=== PATIENT | male | born 1965 | race Caucasian/White ===

== ENCOUNTER → 2022-05-12 | Outpatient (REF) | payer OTHER ==
[~2022-05-12] MED LIST: ACET500C; ASPI81CH33 PO; CELE100C; COLA100C2; FERR325T; LASI40TA; NEXI1CAP3; PERC5TAB8; SUCR1TAB56
[2022-05-12 17:42] LABS: BASO % 0.4 % (0.0-1.0); EOS # 0.1 10^3/uL (0.0-0.5); EOS % 0.7 % (0.0-3.0); HEMATOCRIT 46.5 % (42.0-52.0); HEMOGLOBIN 15.1 g/dl (13.5-17.5); LYMPH # 2.4 10^3/uL (1.5-5.0); LYMPH % 26.3 % (24.0-44.0); MEAN CORPUSCULAR HEMOGLOBIN 29.5 pg (27.0-33.0); MEAN CORPUSCULAR HGB CONC 32.5 g/dl (32.0-36.5); MONO # 0.6 10^3/uL (0.0-0.8); MONO % 6.3 % (2.0-8.0); NEUTROPHILS # 5.9 10^3/uL (1.5-8.5); NEUTROPHILS % 66.1 % (36.0-66.0); PLATELET COUNT, AUTOMATED 272 10^3/uL (150-450); RED BLOOD COUNT 5.11 10^6/uL (4.30-6.10); WHITE BLOOD COUNT 8.9 10^3/uL (4.0-10.0)
[2022-05-12 18:42] LABS: ALBUMIN 3.8 GM/DL (3.2-5.2); ALT/SGPT 56 U/L (12-78); BILIRUBIN,TOTAL 1.3 MG/DL (0.2-1.0); BLOOD UREA NITROGEN 13 MG/DL (7-18); CALCIUM LEVEL 9.1 MG/DL (8.5-10.1); CARBON DIOXIDE LEVEL 29 MEQ/L (21-32); CHLORIDE LEVEL 105 MEQ/L (98-107); CHOLESTEROL LEVEL 218 MG/DL (<200); CHOLESTEROL RISK RATIO 3.694 (<5); CREATININE FOR GFR 0.98 MG/DL (0.70-1.30); GLOMERULAR FILTRATION RATE > 60.0 (>56); GLUCOSE, FASTING 101 MG/DL (70-100); HDL CHOLESTEROL 59 MG/DL (>40); LDL CHOLESTEROL 148 MG/DL (<100); NON-HDL-C 159 MG/DL; POTASSIUM SERUM 4.9 MEQ/L (3.5-5.1); SODIUM LEVEL 138 MEQ/L (136-145); THYROID STIMULATING HORMONE 0.638 uIU/ML (0.358-3.740); TOTAL PROTEIN 7.1 GM/DL (6.4-8.2); TRIGLYCERIDES LEVEL 57 MG/DL (<150)
[2022-05-12 21:18] LABS: HEMOGLOBIN A1c 5.6 %
[2022-05-15 09:37] LABS: TOTAL 25(OH) VITAMIN D 22.1 NG/ML (30.0-100.0)
== END ==
LOC: M LAB REF 16:22
PROVIDERS: ATTEND Nurse Practitioner Family
DX: Z13.228 Encounter for screening for other metabolic disorders (principal)

== ENCOUNTER → 2022-06-05 | Outpatient (REF) | payer OTHER | LOC: M LAB REF 12:32 | PROVIDERS: ATTEND Nurse Practitioner Family | DX: J02.9 Acute pharyngitis, unspecified (principal) ==

== ENCOUNTER → 2022-09-01 | Outpatient (REF) | payer OTHER ==
[2022-09-01 12:40] LABS: CHOLESTEROL RISK RATIO 3.73 (<5); HDL CHOLESTEROL 53.8 MG/DL (>40); LDL CHOLESTEROL 133.8 MG/DL (<100)
== END ==
LOC: M LAB REF 11:42
PROVIDERS: ATTEND Nurse Practitioner Family
DX: E78.00 Pure hypercholesterolemia, unspecified (principal)

== ENCOUNTER 2022-10-27 11:47 | Emergency (ER) | payer OTHER ==
[~2022-10-27] VITALS: Ht 180.3 cm; Wt 100.0 kg
[2022-10-27] MEDS ORDERED: NS 1,000 ML IV ONE (12:05)
[2022-10-27] MEDS ORDERED: MORPHINE 4 MG/ML 1ML VIAL IV ONE (12:05)
[2022-10-27] MEDS ORDERED: ONDANSETRON 4MG 2ML VIAL IV ONE (12:05)
[2022-10-27 12:41] LABS: BASO % 0.3 % (0.0-1.0); EOS # 0.1 10^3/uL (0.0-0.5); EOS % 0.4 % (0.0-3.0); HEMATOCRIT 42.9 % (42.0-52.0); HEMOGLOBIN 13.8 g/dl (13.5-17.5); LYMPH # 3.9 10^3/uL (1.5-5.0); LYMPH % 33.7 % (24.0-44.0); MEAN CORPUSCULAR HEMOGLOBIN 28.7 pg (27.0-33.0); MEAN CORPUSCULAR HGB CONC 32.2 g/dl (32.0-36.5); MEAN CORPUSCULAR VOLUME 89.2 fl (80.0-96.0); MONO # 0.7 10^3/uL (0.0-0.8); NEUTROPHILS # 6.8 10^3/uL (1.5-8.5); NEUTROPHILS % 59.4 % (36.0-66.0); PLATELET COUNT, AUTOMATED 279 10^3/uL (150-450); RED BLOOD COUNT 4.81 10^6/uL (4.30-6.10); WHITE BLOOD COUNT 11.5 10^3/uL (4.0-10.0)
[2022-10-27] MEDS ORDERED: GI COCKTAIL 50ML BTL(HYOSCYAMINE/MAALOX/LIDOCAINE VISCOUS)(1:3:1) PO ONE (12:55)
[2022-10-27 12:56] LABS: BLOOD UREA NITROGEN 10 MG/DL (9-23); CARBON DIOXIDE LEVEL 25 MMOL/L (20-31); CHLORIDE LEVEL 105 MMOL/L (98-107); CREATININE FOR GFR 1.04 MG/DL (0.70-1.30); GLOMERULAR FILTRATION RATE > 60.0 (>56); GLUCOSE, FASTING 155 MG/DL (60-100); SODIUM LEVEL 140 MMOL/L (136-145)
[2022-10-27] MEDS ORDERED: IBUP-1022 PO (13:26)
[2022-10-27] MEDS ORDERED: TRAM50TA2 PO (13:26)
[2022-10-27 14:11] LABS: ALBUMIN 3.7 G/DL (3.2-5.2); BILIRUBIN,DIRECT 0.4 MG/DL (<0.4); BILIRUBIN,TOTAL 1.2 MG/DL (0.3-1.2); MAGNESIUM LEVEL 1.9 MG/DL (1.8-2.4); TOTAL PROTEIN 6.3 G/DL (5.7-8.2)
[2022-10-27 14:32] VITALS: BP 150/85
== END 2022-10-27 14:32 | disposition home or self-care (01) ==
LOC: M ED 11:47
DX: S52.354A Nondisplaced comminuted fracture of shaft of radius, right arm, initial encounter for closed fracture (principal); S52.614A Nondisplaced fracture of right ulna styloid process, initial encounter for closed fracture; W10.9XXA Fall (on) (from) unspecified stairs and steps, initial encounter; K40.31 Unilateral inguinal hernia, with obstruction, without gangrene, recurrent; F10.10 Alcohol abuse, uncomplicated; Y92.009 Unspecified place in unspecified non-institutional (private) residence as the place of occurrence of the external cause; Z79.82 Long term (current) use of aspirin; Z79.899 Other long term (current) drug therapy
CPT/HCPCS: 71045; 73090; 73110; 73130; 80048; 80076; 83735; 85025; 93005; 96361; 96374; 96375; 99284; J2405

== ENCOUNTER → 2022-10-30 | Outpatient (CLI) | payer OTHER ==
[~2022-10-30] MED LIST changes: +IBUP-1022 PO; +TRAM50TA2 PO
== END ==
LOC: M SOG 11:35
PROVIDERS: ATTEND Physician Assistant
DX: S52.591A Other fractures of lower end of right radius, initial encounter for closed fracture (principal)

== ENCOUNTER → 2022-11-06 | Outpatient (CLI) | payer OTHER | LOC: M SOG 09:55 | PROVIDERS: ATTEND Orthopaedic Surgery Hand Surgery | DX: S52.531A Colles' fracture of right radius, initial encounter for closed fracture (principal); S52.611A Displaced fracture of right ulna styloid process, initial encounter for closed fracture; W18.30XA Fall on same level, unspecified, initial encounter; Y92.009 Unspecified place in unspecified non-institutional (private) residence as the place of occurrence of the external cause ==

== ENCOUNTER → 2022-11-13 | Outpatient (CLI) | payer OTHER | LOC: M SOG 10:03 | PROVIDERS: ATTEND Physician Assistant | DX: S52.531D Colles' fracture of right radius, subsequent encounter for closed fracture with routine healing (principal) ==

== ENCOUNTER → 2022-12-01 | Outpatient (REF) | payer OTHER ==
[2022-12-01 13:45] LABS: HEMOGLOBIN A1c 5.6 % (4.0-6.0)
[2022-12-01 13:57] LABS: CHOLESTEROL RISK RATIO 3.54 (<5); HDL CHOLESTEROL 48.5 MG/DL (>40); LDL CHOLESTEROL 110.9 MG/DL (<100); NON-HDL-C 123.5 MG/DL
== END ==
LOC: M LAB REF 12:27
PROVIDERS: ATTEND Nurse Practitioner Family
DX: R89.9 Unspecified abnormal finding in specimens from other organs, systems and tissues (principal); E78.5 Hyperlipidemia, unspecified

== ENCOUNTER → 2022-12-08 | Outpatient (CLI) | payer OTHER | LOC: M SOG 08:54 | PROVIDERS: ATTEND Physician Assistant | DX: S52.531D Colles' fracture of right radius, subsequent encounter for closed fracture with routine healing (principal) ==

== ENCOUNTER → 2023-01-31 | Day surgery (SDC) | payer OTHER ==
[~2023-01-31] VITALS: Ht 180.3 cm; Wt 92.6 kg
[~2023-01-31] MED LIST changes: +DICY-61 PO; +GABA-1171 PO; +KETO10TAB PO; +KETOROLAC 30 MG/ML 1ML VIAL IV ONE; +LABETALOL 100MG/20ML VIAL As Ordered ONE; +LIDOCAINE 2% 100MG/5ML SDV (FOR ANES.) As Ordered ONE; +METOCLOPRAMIDE INJ 10MG/2ML VIAL IV ONE; +NS 1,000 ML IV ONE; +ONDA4TAB6 PO; +PYRI1TAB5 PO; +propofoL 200 MG/20 ML VIAL As Ordered ONE
[2023-01-31 12:19] VITALS: TEMP 97.4
[2023-01-31 14:05] VITALS: BP 155/98; O2SAT 98
== END | disposition home or self-care (01) ==
LOC: M OPP 10:36
PROVIDERS: ATTEND Surgery
DX: R19.5 Other fecal abnormalities (principal); D12.0 Benign neoplasm of cecum; D12.4 Benign neoplasm of descending colon; D12.5 Benign neoplasm of sigmoid colon; K64.0 First degree hemorrhoids; Z87.891 Personal history of nicotine dependence
CPT/HCPCS: 45380; 45385; 88305; J1885; J1920; J2765

== ENCOUNTER 2023-02-02 07:17 | Emergency (ER) | payer OTHER ==
[~2023-02-02] VITALS: Ht 180.3 cm; Wt 90.5 kg
[~2023-02-02 07:17] MED LIST changes: -DICY-61 PO; -GABA-1171 PO; -KETO10TAB PO; -KETOROLAC 30 MG/ML 1ML VIAL IV ONE; -LABETALOL 100MG/20ML VIAL As Ordered ONE; -LIDOCAINE 2% 100MG/5ML SDV (FOR ANES.) As Ordered ONE; -METOCLOPRAMIDE INJ 10MG/2ML VIAL IV ONE; -NS 1,000 ML IV ONE; -ONDA4TAB6 PO; -PYRI1TAB5 PO; -propofoL 200 MG/20 ML VIAL As Ordered ONE
[2023-02-02] MEDS ORDERED: MORPHINE 4 MG/ML 1ML VIAL IV ONE (07:40)
[2023-02-02] MEDS ORDERED: NS 1,000 ML IV ONE ×3 (07:40→09:10)
[2023-02-02 08:01] LABS: BASO % 0.2 % (0.0-1.0); HEMATOCRIT 45.3 % (42.0-52.0); HEMOGLOBIN 15.1 g/dl (13.5-17.5); LYMPH # 1.4 10^3/uL (1.5-5.0); LYMPH % 8.7 % (24.0-44.0); MEAN CORPUSCULAR HEMOGLOBIN 28.6 pg (27.0-33.0); MEAN CORPUSCULAR HGB CONC 33.3 g/dl (32.0-36.5); MEAN CORPUSCULAR VOLUME 85.8 fl (80.0-96.0); MONO # 0.6 10^3/uL (0.0-0.8); MONO % 3.9 % (2.0-8.0); NEUTROPHILS # 14.2 10^3/uL (1.5-8.5); NEUTROPHILS % 86.8 % (36.0-66.0); PLATELET COUNT, AUTOMATED 302 10^3/uL (150-450); RED BLOOD COUNT 5.28 10^6/uL (4.30-6.10); WHITE BLOOD COUNT 16.3 10^3/uL (4.0-10.0)
[2023-02-02] MEDS: HYDROMORPHONE HCL 0.5 MG/ 0.5 ML SYRINGE IV PRN ×2 (08:05→13:18)
[2023-02-02] MEDS ORDERED: ISOVUE-370 76% 100ML VIAL As Ordered ONE (08:20)
[2023-02-02 08:21] LABS: CK-MB VALUE MASS 2.5 NG/ML (<3.6)
[2023-02-02 08:23] LABS: ALBUMIN 4.2 G/DL (3.2-5.2); BILIRUBIN,DIRECT 0.8 MG/DL (<0.4); BILIRUBIN,TOTAL 2.4 MG/DL (0.3-1.2); MB/CK RELATIVE INDEX 0.79 (< OR =4)
[2023-02-02] MEDS ORDERED: DICYCLOMINE INJ 20MG/2ML IM ONE (09:10)
[2023-02-02] MEDS ORDERED: BISACODYL 10MG SUPP PR ONE (09:10)
[2023-02-02] MEDS ORDERED: SIMETHICONE 80MG CHEW TAB PO STA (12:51)
[2023-02-02] MEDS ORDERED: MAALOX 30 ML SUSP *UDC PO ONE (12:55)
[2023-02-02] MEDS ORDERED: KETOROLAC 30 MG/ML 1ML VIAL IV ONE (13:15)
[2023-02-02] MEDS ORDERED: DICY-61 PO (13:45)
[2023-02-02] MEDS ORDERED: KETO10TAB PO (13:45)
[2023-02-02 13:55] VITALS: BP 112/56; TEMP 98.4; O2SAT 99
[2023-02-03] MEDS ORDERED: GABA-1171 PO (16:07)
[2023-02-03] MEDS ORDERED: ONDA4TAB6 PO (16:07)
== END 2023-02-02 14:04 | disposition home or self-care (01) ==
LOC: M ED 07:17
DX: G89.18 Other acute postprocedural pain (principal); R14.3 Flatulence; R14.0 Abdominal distension (gaseous); E86.0 Dehydration; I49.3 Ventricular premature depolarization; K27.9 Peptic ulcer, site unspecified, unspecified as acute or chronic, without hemorrhage or perforation; F12.10 Cannabis abuse, uncomplicated; Z79.83 Long term (current) use of bisphosphonates; Z79.810 Long term (current) use of selective estrogen receptor modulators (SERMs); Z79.899 Other long term (current) drug therapy; Z79.891 Long term (current) use of opiate analgesic
CPT/HCPCS: 74018; 74177; 80047; 80076; 81001; 82550; 82553; 83605; 83690; 85025; 87635; 93005; 93041; 94760; 96361; 96372; 96374; 96375; 99285; J0500; J1170; J1885; Q9967

== ENCOUNTER 2023-02-03 07:59 | Emergency (ER) | payer OTHER ==
[~2023-02-03] VITALS: Ht 180.3 cm; Wt 90.9 kg
[~2023-02-03 07:59] MED LIST changes: +DICY-61 PO; +KETO10TAB PO
[2023-02-03] MEDS ORDERED: diazePAM 10MG/2ML SYRINGE IV ONE (09:35)
[2023-02-03] MEDS ORDERED: ONDANSETRON 4MG 2ML VIAL IV ONE (09:50)
[2023-02-03 10:12] LABS: HEMATOCRIT 42.2 % (42.0-52.0); HEMOGLOBIN 14.3 g/dl (13.5-17.5); MEAN CORPUSCULAR HEMOGLOBIN 29.5 pg (27.0-33.0); MEAN CORPUSCULAR HGB CONC 33.9 g/dl (32.0-36.5); MEAN CORPUSCULAR VOLUME 87.2 fl (80.0-96.0); PLATELET COUNT, AUTOMATED 267 10^3/uL (150-450); RED BLOOD COUNT 4.84 10^6/uL (4.30-6.10); WHITE BLOOD COUNT 10.1 10^3/uL (4.0-10.0)
[2023-02-03 10:36] LABS: ETHYL ALCOHOL (ETHANOL) 0.004 % (0.000-0.010)
[2023-02-03 10:37] LABS: SALICYLATE LEVEL < 3.0 MG/DL (<30)
[2023-02-03 10:38] LABS: ACETAMINOPHEN LEVEL < 2.0 UG/ML (10.0-20.0)
[2023-02-03 10:45] LABS: ALBUMIN 3.7 G/DL (3.2-5.2); ALKALINE PHOSPHATASE 78 U/L (46-116); ALT/SGPT 31 U/L (7.0-40); AST/SGOT 26 U/L (<34); BILIRUBIN,DIRECT 0.6 MG/DL (<0.4); BILIRUBIN,TOTAL 1.6 MG/DL (0.3-1.2); BLOOD UREA NITROGEN 10 MG/DL (9-23); CALCIUM LEVEL 9.1 MG/DL (8.5-10.1); CARBON DIOXIDE LEVEL 25 MMOL/L (20-31); CHLORIDE LEVEL 107 MMOL/L (98-107); CREATININE FOR GFR 0.81 MG/DL (0.70-1.30); GLOMERULAR FILTRATION RATE > 60.0 (>56); GLUCOSE, FASTING 84 MG/DL (60-100); POTASSIUM SERUM 3.9 MMOL/L (3.5-5.1); SODIUM LEVEL 141 MMOL/L (136-145); THYROID STIMULATING HORMONE 0.504 uIU/ML (0.55-4.78); TOTAL PROTEIN 6.2 G/DL (5.7-8.2)
[2023-02-03 10:47] LABS: AMPHETAMINES LEVEL URINE NEGATIVE (NEGATIVE); BARBITURATES URINE NEGATIVE (NEGATIVE); BENZODIAZEPINES URINE NEGATIVE (NEGATIVE); COCAINE METABOLITE URINE NEGATIVE (NEGATIVE); METHADONE URINE NEGATIVE (NEGATIVE)
[2023-02-03 10:48] LABS: OPIATES URINE NEGATIVE (NEGATIVE); PHENCYCLIDINE URINE NEGATIVE (NEGATIVE)
[2023-02-03 10:50] LABS: CANNABINOIDS URINE POSITIVE (NEGATIVE)
[2023-02-03 11:26] VITALS: TEMP 98.3
[2023-02-03] MEDS ORDERED: KETOROLAC 30 MG/ML 1ML VIAL IV ONE (14:40)
[2023-02-03] MEDS ORDERED: GABA-1171 PO (16:07)
[2023-02-03] MEDS ORDERED: ONDA4TAB6 PO (16:07)
[2023-02-03 16:15] VITALS: BP 135/91; O2SAT 99
[2023-02-04] MEDS ORDERED: PYRI1TAB5 PO (06:19)
== END 2023-02-03 16:28 | disposition home or self-care (01) ==
LOC: M ED 10:48
DX: R10.2 Pelvic and perineal pain (principal); G25.81 Restless legs syndrome; Z79.891 Long term (current) use of opiate analgesic; Z79.899 Other long term (current) drug therapy
CPT/HCPCS: 80048; 80076; 80143; 80307; 82077; 84443; 85027; 96374; 96375; 99283; J1885; J2405; J3360

== ENCOUNTER 2023-02-03 20:04 | Emergency (ER) | payer OTHER ==
[~2023-02-03] VITALS: Ht 180.3 cm; Wt 90.5 kg
[~2023-02-03 20:04] MED LIST changes: +GABA-1171 PO; +ONDA4TAB6 PO
[2023-02-03] MEDS ORDERED: NS 1,000 ML IV ONE (21:05)
[2023-02-03 22:57] LABS: BASO % 0.3 % (0.0-1.0); EOS % 0.1 % (0.0-3.0); HEMATOCRIT 38.3 % (42.0-52.0); HEMOGLOBIN 12.9 g/dl (13.5-17.5); LYMPH # 1.9 10^3/uL (1.5-5.0); LYMPH % 18.4 % (24.0-44.0); MEAN CORPUSCULAR HEMOGLOBIN 29.7 pg (27.0-33.0); MEAN CORPUSCULAR HGB CONC 33.7 g/dl (32.0-36.5); MONO # 0.7 10^3/uL (0.0-0.8); MONO % 6.5 % (2.0-8.0); NEUTROPHILS # 7.7 10^3/uL (1.5-8.5); NEUTROPHILS % 74.2 % (36.0-66.0); PLATELET COUNT, AUTOMATED 233 10^3/uL (150-450); RED BLOOD COUNT 4.35 10^6/uL (4.30-6.10); WHITE BLOOD COUNT 10.4 10^3/uL (4.0-10.0)
[2023-02-03 23:21] LABS: C REACTIVE PROTEIN QUANTITATIV < 0.40 MG/DL (<1.0)
[2023-02-03 23:52] LABS: ALBUMIN 3.2 G/DL (3.2-5.2); ALKALINE PHOSPHATASE 67 U/L (46-116); ALT/SGPT 28 U/L (7.0-40); AST/SGOT 20 U/L (<34); BILIRUBIN,TOTAL 1.5 MG/DL (0.3-1.2); BLOOD UREA NITROGEN 10 MG/DL (9-23); CALCIUM LEVEL 8.2 MG/DL (8.5-10.1); CARBON DIOXIDE LEVEL 28 MMOL/L (20-31); CHLORIDE LEVEL 109 MMOL/L (98-107); CREATININE FOR GFR 0.86 MG/DL (0.70-1.30); GLOMERULAR FILTRATION RATE > 60.0 (>56); GLUCOSE, FASTING 90 MG/DL (60-100); MAGNESIUM LEVEL 2.1 MG/DL (1.8-2.4); POTASSIUM SERUM 3.7 MMOL/L (3.5-5.1); SODIUM LEVEL 143 MMOL/L (136-145); TOTAL PROTEIN 5.4 G/DL (5.7-8.2)
[2023-02-04] MEDS: GASTROGRAFIN SOLUTION 30ML PO SCH ×2 (03:06→03:30)
[2023-02-04] MEDS ORDERED: ISOVUE-370 76% 100ML VIAL As Ordered ONE (04:22)
[2023-02-04] MEDS ORDERED: ONDANSETRON 4MG 2ML VIAL As Ordered ONE (04:54)
[2023-02-04] MEDS ORDERED: ONDANSETRON 4MG 2ML VIAL IV ONE (04:55)
[2023-02-04] MEDS ORDERED: PHENAZOPYRIDINE 100 MG TAB PO ONE (06:15)
[2023-02-04] MEDS ORDERED: PYRI1TAB5 PO (06:19)
[2023-02-04 06:56] VITALS: BP 128/78; TEMP 98.8; O2SAT 98
== END 2023-02-04 06:37 | disposition home or self-care (01) ==
LOC: M ED 20:04
DX: R30.1 Vesical tenesmus (principal); Z79.891 Long term (current) use of opiate analgesic; Z79.83 Long term (current) use of bisphosphonates; Z79.899 Other long term (current) drug therapy
CPT/HCPCS: 74177; 80053; 81001; 83605; 83735; 85025; 86140; 96361; 96374; 99285; J2405; Q9963; Q9967

== ENCOUNTER → 2023-06-07 | Outpatient (REF) | payer OTHER ==
[~2023-06-07] MED LIST changes: +PYRI1TAB5 PO
[2023-06-07 14:08] LABS: BASO % 0.4 % (0.0-1.0); EOS % 0.3 % (0.0-3.0); HEMATOCRIT 51.6 % (42.0-52.0); HEMOGLOBIN 16.7 g/dl (13.5-17.5); LYMPH # 2.7 10^3/uL (1.5-5.0); LYMPH % 25.6 % (24.0-44.0); MEAN CORPUSCULAR HEMOGLOBIN 29.2 pg (27.0-33.0); MEAN CORPUSCULAR HGB CONC 32.4 g/dl (32.0-36.5); MEAN CORPUSCULAR VOLUME 90.4 fl (80.0-96.0); MONO # 0.6 10^3/uL (0.0-0.8); MONO % 5.2 % (2.0-8.0); NEUTROPHILS # 7.2 10^3/uL (1.5-8.5); NEUTROPHILS % 68.2 % (36.0-66.0); PLATELET COUNT, AUTOMATED 312 10^3/uL (150-450); RED BLOOD COUNT 5.71 10^6/uL (4.30-6.10); WHITE BLOOD COUNT 10.6 10^3/uL (4.0-10.0)
[2023-06-07 14:36] LABS: PERCENT SATURATION 22.6 % (19.7-50.0)
[2023-06-07 14:39] LABS: FOLATE 19.8 NG/ML (>5.4)
== END ==
LOC: M LAB REF 12:49
PROVIDERS: ATTEND Nurse Practitioner Family
DX: G62.9 Polyneuropathy, unspecified (principal)

== ENCOUNTER 2023-08-08 11:22 | Emergency (ER) | payer OTHER ==
[~2023-08-08] VITALS: Ht 180.3 cm; Wt 91.1 kg
[2023-08-08] MEDS: ACETAMINOPHEN *IV* 1,000 MG in IV 1 EA IV ONE (12:39)
[2023-08-08] MEDS: ONDANSETRON 4MG 2ML VIAL IV ONE (12:39)
[2023-08-08] MEDS: LR 1,000 ML IV ONE (12:39)
[2023-08-08 13:20] LABS: BASO % 0.1 % (0.0-1.0); HEMATOCRIT 41.1 % (42.0-52.0); HEMOGLOBIN 13.8 g/dl (13.5-17.5); LYMPH # 0.9 10^3/uL (1.5-5.0); LYMPH % 11.1 % (24.0-44.0); MEAN CORPUSCULAR HEMOGLOBIN 29.2 pg (27.0-33.0); MEAN CORPUSCULAR HGB CONC 33.6 g/dl (32.0-36.5); MEAN CORPUSCULAR VOLUME 87.1 fl (80.0-96.0); MONO % 12.3 % (2.0-8.0); NEUTROPHILS # 6.3 10^3/uL (1.5-8.5); NEUTROPHILS % 76.3 % (36.0-66.0); PLATELET COUNT, AUTOMATED 252 10^3/uL (150-450); RED BLOOD COUNT 4.72 10^6/uL (4.30-6.10); WHITE BLOOD COUNT 8.2 10^3/uL (4.0-10.0)
[2023-08-08 13:32] LABS: INR 1.09; PROTHROMBIN TIME 13.7 SECONDS (12.5-14.5)
[2023-08-08 13:33] LABS: PARTIAL THROMBOPLASTIN TIME 30.6 SECONDS (24.8-34.2)
[2023-08-08 13:47] LABS: ALBUMIN 3.5 G/DL (3.2-5.2); ALKALINE PHOSPHATASE 95 U/L (46-116); ALT/SGPT 22 U/L (7.0-40); AST/SGOT 20 U/L (<34); BILIRUBIN,TOTAL 0.8 MG/DL (0.3-1.2); BLOOD UREA NITROGEN 14 MG/DL (9-23); CALCIUM LEVEL 8.4 MG/DL (8.5-10.1); CARBON DIOXIDE LEVEL 25 MMOL/L (20-31); CHLORIDE LEVEL 105 MMOL/L (98-107); CREATININE FOR GFR 0.78 MG/DL (0.70-1.30); GLOMERULAR FILTRATION RATE > 60.0 (>56); GLUCOSE, FASTING 92 MG/DL (60-100); SODIUM LEVEL 137 MMOL/L (136-145); TOTAL PROTEIN 6.2 G/DL (5.7-8.2)
[2023-08-08 13:50] LABS: RSV AMPLIFICATION NEGATIVE (NEGATIVE)
[2023-08-08 13:54] LABS: PROCALCITONIN 0.04 ng/ml
[2023-08-08] MEDS ORDERED: ONDA8TAB8 PO (13:56)
[2023-08-08] MEDS ORDERED: OSEL75CA PO (13:56)
[2023-08-08] MEDS: OSELTAMIVIR PHOSPHATE 75 MG CAP (TAMIFLU) PO ONE (14:32)
[2023-08-08 14:37] VITALS: BP 142/76; TEMP 98.9; O2SAT 98
== END 2023-08-08 14:40 | disposition home or self-care (01) ==
LOC: M ED 11:22 → EDBD 11:22 → M ED 14:40
DX: J09.X2 Influenza due to identified novel influenza A virus with other respiratory manifestations (principal); Z79.899 Other long term (current) drug therapy
CPT/HCPCS: 71045; 80053; 83605; 83735; 84145; 85025; 85610; 85730; 86140; 87040; 87631; 96374; 99284; J0131; J2405

== ENCOUNTER 2023-08-08 23:45 | Emergency (ER) | payer OTHER ==
[~2023-08-08] VITALS: Ht 172.7 cm; Wt 90.0 kg
[~2023-08-08 23:45] MED LIST changes: +ONDA8TAB8 PO; +OSEL75CA PO
[2023-08-09] MEDS: MORPHINE 4 MG/ML 1ML VIAL IV ONE ×2 (00:29→02:00)
[2023-08-09] MEDS: ONDANSETRON 4MG 2ML VIAL IV ONE (00:29)
[2023-08-09 01:30] LABS: LIPASE 30 U/L (12-53)
[2023-08-09 01:32] LABS: ALBUMIN 3.4 G/DL (3.2-5.2); ALKALINE PHOSPHATASE 94 U/L (46-116); ALT/SGPT 26 U/L (7.0-40); AST/SGOT 25 U/L (<34); BILIRUBIN,TOTAL 0.8 MG/DL (0.3-1.2); BLOOD UREA NITROGEN 14 MG/DL (9-23); CALCIUM LEVEL 8.3 MG/DL (8.5-10.1); CARBON DIOXIDE LEVEL 23 MMOL/L (20-31); CHLORIDE LEVEL 107 MMOL/L (98-107); CREATININE FOR GFR 0.79 MG/DL (0.70-1.30); GLOMERULAR FILTRATION RATE > 60.0 (>56); GLUCOSE, FASTING 114 MG/DL (60-100); POTASSIUM SERUM 4.2 MMOL/L (3.5-5.1); SODIUM LEVEL 138 MMOL/L (136-145); TOTAL PROTEIN 6.2 G/DL (5.7-8.2)
[2023-08-09] MEDS: HALOPERIDOL 5MG/ML 1ML VIAL IV ONE (02:00)
[2023-08-09 02:10] LABS: BASO % 0.3 % (0.0-1.0); EOS % 0.1 % (0.0-3.0); HEMATOCRIT 40.7 % (42.0-52.0); LYMPH # 1.4 10^3/uL (1.5-5.0); LYMPH % 17.6 % (24.0-44.0); MEAN CORPUSCULAR HEMOGLOBIN 29.7 pg (27.0-33.0); MEAN CORPUSCULAR HGB CONC 34.4 g/dl (32.0-36.5); MEAN CORPUSCULAR VOLUME 86.4 fl (80.0-96.0); MONO % 12.5 % (2.0-8.0); NEUTROPHILS # 5.4 10^3/uL (1.5-8.5); NEUTROPHILS % 69.1 % (36.0-66.0); RED BLOOD COUNT 4.71 10^6/uL (4.30-6.10); WHITE BLOOD COUNT 7.8 10^3/uL (4.0-10.0)
[2023-08-09 03:00] VITALS: BP 111/58; TEMP 98.2; O2SAT 97
== END 2023-08-09 03:14 | disposition home or self-care (01) ==
LOC: M ED 23:45
DX: J09.X2 Influenza due to identified novel influenza A virus with other respiratory manifestations (principal); R10.2 Pelvic and perineal pain; F12.10 Cannabis abuse, uncomplicated; Z79.83 Long term (current) use of bisphosphonates; Z79.899 Other long term (current) drug therapy
CPT/HCPCS: 71045; 74176; 80053; 83605; 83690; 83735; 84145; 85025; 85610; 85730; 86140; 87040; 87631; 96374; 96375; 96376; 99284; J0131; J1630; J2405

== ENCOUNTER → 2023-12-28 | Outpatient (REF) | payer OTHER ==
[~2023-12-28] MED LIST changes: +ONDA-282 PO; +ONDA-284 PO; -ONDA4TAB6 PO; -ONDA8TAB8 PO
[2023-12-28 14:10] LABS: BASO % 0.4 % (0.0-1.0); EOS # 0.1 10^3/uL (0.0-0.5); EOS % 1.2 % (0.0-3.0); HEMOGLOBIN 15.1 g/dl (13.5-17.5); LYMPH # 2.4 10^3/uL (1.5-5.0); LYMPH % 28.5 % (24.0-44.0); MEAN CORPUSCULAR HEMOGLOBIN 29.8 pg (27.0-33.0); MEAN CORPUSCULAR HGB CONC 32.8 g/dl (32.0-36.5); MEAN CORPUSCULAR VOLUME 90.9 fl (80.0-96.0); MONO # 0.7 10^3/uL (0.0-0.8); MONO % 7.6 % (2.0-8.0); NEUTROPHILS # 5.3 10^3/uL (1.5-8.5); NEUTROPHILS % 61.9 % (36.0-66.0); PLATELET COUNT, AUTOMATED 269 10^3/uL (150-450); RED BLOOD COUNT 5.06 10^6/uL (4.30-6.10); WHITE BLOOD COUNT 8.5 10^3/uL (4.0-10.0)
[2023-12-28 14:15] LABS: BLOOD UREA NITROGEN 12 MG/DL (9-23); CALCIUM LEVEL 9.2 MG/DL (8.5-10.1); CARBON DIOXIDE LEVEL 30 MMOL/L (20-31); CHLORIDE LEVEL 107 MMOL/L (98-107); CHOLESTEROL LEVEL 168 MG/DL (<200); CHOLESTEROL RISK RATIO 3.41 (<5); CREATININE FOR GFR 0.84 MG/DL (0.70-1.30); GLOMERULAR FILTRATION RATE > 60.0 (>56); GLUCOSE, FASTING 105 MG/DL (60-100); HDL CHOLESTEROL 49.2 MG/DL (>40); LDL CHOLESTEROL 104.2 MG/DL (<100); NON-HDL-C 118.8 MG/DL; POTASSIUM SERUM 4.8 MMOL/L (3.5-5.1); SODIUM LEVEL 141 MMOL/L (136-145); TRIGLYCERIDES LEVEL 73 MG/DL (<150)
[2023-12-28 14:16] LABS: THYROID STIMULATING HORMONE 0.922 uIU/ML (0.55-4.78); TOTAL 25(OH) VITAMIN D 29.6 NG/ML (20.0-100.0)
[2023-12-28 14:37] LABS: HEMOGLOBIN A1c 5.5 % (4.0-6.0)
== END ==
LOC: M LAB REF 12:30
PROVIDERS: ATTEND Nurse Practitioner Family
DX: E55.9 Vitamin D deficiency, unspecified (principal); G62.9 Polyneuropathy, unspecified; E66.9 Obesity, unspecified; Z68.32 Body mass index [BMI] 32.0-32.9, adult

== ENCOUNTER 2024-08-23 16:57 | Observation (INO) | payer OTHER ==
[2024-08-23] MEDS ORDERED: ISOVUE-370 76% 100ML VIAL As Ordered ONE (17:16)
[2024-08-23 17:23] LABS: BASO % 0.1 % (0.0-1.0); HEMATOCRIT 44.7 % (42.0-52.0); HEMOGLOBIN 15.2 g/dl (13.5-17.5); LYMPH # 0.5 10^3/uL (1.5-5.0); LYMPH % 3.2 % (24.0-44.0); MEAN CORPUSCULAR HEMOGLOBIN 29.6 pg (27.0-33.0); MEAN CORPUSCULAR VOLUME 87.1 fl (80.0-96.0); MONO # 0.5 10^3/uL (0.0-0.8); MONO % 2.8 % (2.0-8.0); NEUTROPHILS # 15.1 10^3/uL (1.5-8.5); NEUTROPHILS % 93.6 % (36.0-66.0); PLATELET COUNT, AUTOMATED 286 10^3/uL (150-450); RED BLOOD COUNT 5.13 10^6/uL (4.30-6.10); WHITE BLOOD COUNT 16.1 10^3/uL (4.0-10.0)
[2024-08-23] MEDS: HALOPERIDOL LACTATE 5MG/ML VIAL IV ONE (17:30)
[2024-08-23] MEDS: NS (Normal Saline) 0.9% 1,000 ML IV ONE ×3 (17:30→20:06)
[2024-08-23 18:01] LABS: LIPASE 23 U/L (12-53)
[2024-08-23 18:03] LABS: ALBUMIN 3.9 G/DL (3.2-5.2); ALKALINE PHOSPHATASE 98 U/L (40-129); ALT/SGPT 18 U/L (7.0-40); AST/SGOT 11 U/L (<34); BILIRUBIN,DIRECT 0.4 MG/DL (<0.4); BILIRUBIN,TOTAL 1.3 MG/DL (0.3-1.2); BLOOD UREA NITROGEN 17 MG/DL (9-23); CALCIUM LEVEL 9.5 MG/DL (8.3-10.6); CARBON DIOXIDE LEVEL 20 MMOL/L (20-31); CHLORIDE LEVEL 108 MMOL/L (98-107); CREATININE FOR GFR 0.91 MG/DL (0.70-1.30); GLOMERULAR FILTRATION RATE > 60.0 (>49); GLUCOSE, FASTING 195 MG/DL (74-106); POTASSIUM SERUM 4.4 MMOL/L (3.5-5.1); SODIUM LEVEL 142 MMOL/L (136-145)
[2024-08-23 18:56] LABS: KETONE, URINE AUTO RFX TRACE mg/dL (NEGATIVE); LEUKOCYTE ESTERASE UR AUTO RFX NEGATIVE (NEGATIVE); NITRITE, URINE AUTO RFX NEGATIVE (NEGATIVE); RBC, URINE AUTO RFX 2 /HPF (0-3); SQUAM EPITHELIAL CELL UR AURFX 0 /HPF (0-6); WBC, URINE AUTO RFX 0 /HPF (0-3)
[2024-08-23] MEDS: KETOROLAC 30 MG/ML 1ML VIAL IV ONE (19:08)
[2024-08-23 19:17] LABS: AMPHETAMINES LEVEL URINE NEGATIVE (NEGATIVE); BARBITURATES URINE NEGATIVE (NEGATIVE)
[2024-08-23 19:18] LABS: BENZODIAZEPINES URINE NEGATIVE (NEGATIVE); COCAINE METABOLITE URINE NEGATIVE (NEGATIVE); METHADONE URINE NEGATIVE (NEGATIVE); OPIATES URINE NEGATIVE (NEGATIVE); PHENCYCLIDINE URINE NEGATIVE (NEGATIVE)
[2024-08-23 19:22] LABS: CANNABINOIDS URINE POSITIVE (NEGATIVE)
[2024-08-23] MEDS: ONDANSETRON 4MG 2ML VIAL IV ONE (20:06)
[2024-08-23] MEDS: PROMETHAZINE 25MG/ML 1ML VIAL IV ONE (21:11)
[2024-08-23] MEDS: PANTOPRAZOLE 40MG VIAL IV STA (23:58)
[2024-08-23] MEDS: NS (Normal Saline) 0.9% 1,000 ML IV SCH (23:58)
[2024-08-24] MEDS ORDERED: HOME MED LIST COMPLETE! XX SCH (00:05)
[2024-08-24 00:30] LABS: MAGNESIUM LEVEL 1.9 MG/DL (1.8-2.4)
[2024-08-24] MEDS ORDERED: metroNIDAZOLE 500 MG in IV 1 EA IV SCH (01:00)
[2024-08-24 01:05] VITALS: BP 133/89; TEMP 99; O2SAT 97
[2024-08-24 01:05] LABS: HEMOGLOBIN A1c 5.5 % (4.0-6.0)
[2024-08-24] MEDS: metroNIDAZOLE 500 MG in IV 1 EA IV SCH (01:10)
[2024-08-24] MEDS: ONDANSETRON 4MG 2ML VIAL IV PRN (01:10)
[2024-08-24] MEDS: ACETAMINOPHEN *IV* 500 MG in IV 1 EA IV PRN (02:55)
[2024-08-24] MEDS: METOCLOPRAMIDE INJ 10MG/2ML VIAL IV ONE (03:50)
[2024-08-24 03:52] VITALS: BP 133/88; TEMP 98.8; O2SAT 98
[2024-08-24] MEDS: HEPARIN SOD (PORCINE) 5000UNITS/ML 1ML VIAL/SYRINGE SC SCH (04:27)
[2024-08-24 06:50] LABS: BASO % 0.2 % (0.0-1.0); HEMATOCRIT 37.6 % (42.0-52.0); LYMPH % 10.9 % (24.0-44.0); MEAN CORPUSCULAR HEMOGLOBIN 29.9 pg (27.0-33.0); MEAN CORPUSCULAR HGB CONC 33.5 g/dl (32.0-36.5); MEAN CORPUSCULAR VOLUME 89.1 fl (80.0-96.0); MONO # 0.5 10^3/uL (0.0-0.8); MONO % 5.7 % (2.0-8.0); NEUTROPHILS # 7.4 10^3/uL (1.5-8.5); NEUTROPHILS % 82.8 % (36.0-66.0); PLATELET COUNT, AUTOMATED 217 10^3/uL (150-450); RED BLOOD COUNT 4.22 10^6/uL (4.30-6.10)
[2024-08-24 06:51] LABS: HEMOGLOBIN 12.6 g/dl (13.5-17.5)
[2024-08-24 07:11] LABS: ALBUMIN 3.2 G/DL (3.2-5.2); ALKALINE PHOSPHATASE 71 U/L (40-129); ALT/SGPT 17 U/L (7.0-40); AST/SGOT 14 U/L (<34); BILIRUBIN,TOTAL 0.7 MG/DL (0.3-1.2); BLOOD UREA NITROGEN 9 MG/DL (9-23); CALCIUM LEVEL 8.4 MG/DL (8.3-10.6); CARBON DIOXIDE LEVEL 22 MMOL/L (20-31); CHLORIDE LEVEL 111 MMOL/L (98-107); GLOMERULAR FILTRATION RATE > 60.0 (>49); GLUCOSE, FASTING 125 MG/DL (74-106); POTASSIUM SERUM 3.8 MMOL/L (3.5-5.1); SODIUM LEVEL 144 MMOL/L (136-145); TOTAL PROTEIN 5.9 G/DL (5.7-8.2)
[2024-08-24] MEDS: PANTOPRAZOLE 40MG VIAL IV SCH (08:50)
[2024-08-24 12:45] VITALS: BP 136/80; TEMP 98.6; O2SAT 97
[2024-08-24] MEDS: CIPROFLOXACIN 400 MG in IV 1 EA IV SCH (15:49)
[2024-08-24 19:50] VITALS: BP 132/81; TEMP 98.8; O2SAT 98
[2024-08-24] MEDS ORDERED: RAMELTEON 8 MG TAB (ROZEREM) PO ONE (23:00)
[2024-08-25] MEDS: LORazepam 0.5 MG TAB PO ONE (00:11)
[2024-08-25] MEDS: traZODone 50 MG TAB PO ONE (03:07)
[2024-08-25 04:07] VITALS: BP 150/80; TEMP 98.6; O2SAT 99
[2024-08-25 05:55] LABS: BASO % 0.3 % (0.0-1.0); EOS % 0.2 % (0.0-3.0); HEMOGLOBIN 12.1 g/dl (13.5-17.5); LYMPH # 1.5 10^3/uL (1.5-5.0); LYMPH % 24.6 % (24.0-44.0); MEAN CORPUSCULAR HEMOGLOBIN 28.8 pg (27.0-33.0); MEAN CORPUSCULAR HGB CONC 32.7 g/dl (32.0-36.5); MEAN CORPUSCULAR VOLUME 88.1 fl (80.0-96.0); MONO # 0.8 10^3/uL (0.0-0.8); MONO % 12.9 % (2.0-8.0); NEUTROPHILS # 3.8 10^3/uL (1.5-8.5); NEUTROPHILS % 61.2 % (36.0-66.0); PLATELET COUNT, AUTOMATED 215 10^3/uL (150-450); WHITE BLOOD COUNT 6.1 10^3/uL (4.0-10.0)
[2024-08-25 06:12] LABS: ALBUMIN 3.2 G/DL (3.2-5.2); ALKALINE PHOSPHATASE 65 U/L (40-129); ALT/SGPT 30 U/L (7.0-40); AST/SGOT 29 U/L (<34); BILIRUBIN,TOTAL 0.6 MG/DL (0.3-1.2); BLOOD UREA NITROGEN 5 MG/DL (9-23); CALCIUM LEVEL 8.3 MG/DL (8.3-10.6); CARBON DIOXIDE LEVEL 26 MMOL/L (20-31); CHLORIDE LEVEL 107 MMOL/L (98-107); CREATININE FOR GFR 0.77 MG/DL (0.70-1.30); GLOMERULAR FILTRATION RATE > 60.0 (>49); GLUCOSE, FASTING 118 MG/DL (74-106); POTASSIUM SERUM 3.7 MMOL/L (3.5-5.1); SODIUM LEVEL 142 MMOL/L (136-145); TOTAL PROTEIN 5.8 G/DL (5.7-8.2)
[2024-08-25 12:00] VITALS: BP 140/80; TEMP 98.2; O2SAT 96
[2024-08-25] MEDS ORDERED: CIPR250T3 PO (13:34)
[2024-08-25] MEDS ORDERED: METR-265 PO (13:34)
[2024-08-25] MEDS ORDERED: DICY20TA20 PO (13:35)
[2024-08-25] MEDS ORDERED: ONDA-83 PO (13:41)
[2024-08-25] MEDS: DICYCLOMINE INJ 20MG/2ML IM PRN (14:55)
== END 2024-08-25 16:40 | disposition home or self-care (01) ==
LOC: M ED 16:57 → M ED INP 16:58 → M MS5PR 08-24 00:55
PROVIDERS: ADMIT Student in an Organized Health Care Education/Training Program; ATTEND Student in an Organized Health Care Education/Training Program
DX: K52.9 Noninfective gastroenteritis and colitis, unspecified (principal); K57.32 Diverticulitis of large intestine without perforation or abscess without bleeding; R11.2 Nausea with vomiting, unspecified; F12.188 Cannabis abuse with other cannabis-induced disorder; K21.9 Gastro-esophageal reflux disease without esophagitis; Z79.2 Long term (current) use of antibiotics
CPT/HCPCS: 36415; 74177; 80048; 80053; 80076; 80307; 81001; 83036; 83605; 83690; 83735; 85025; 93005; 93041; 96361; 96365; 96366; 96372; 96375; 96376; 97161; 99285; J0131; J0500; J0744; J1630; J1836; J1885; J2405; J2470; J2550; J2765; Q9967

== ENCOUNTER 2025-04-16 23:09 | Emergency (ER) | payer OTHER ==
[~2025-04-16] VITALS: Ht 180.3 cm; Wt 90.9 kg
[~2025-04-16 23:09] MED LIST changes: +CIPR250T3 PO; +DICY20TA20 PO; -IBUP-1022 PO; +IBUP600T42 PO; +METR-265 PO; +ONDA-83 PO
[2025-04-16 23:20] VITALS: TEMP 98.1
[2025-04-17] MEDS: PANTOPRAZOLE 40MG VIAL IV ONE (00:45)
[2025-04-17] MEDS: NS (Normal Saline) 0.9% 1,000 ML IV ONE (00:45)
[2025-04-17 00:57] LABS: BASO # 0.0 10^3/uL (0.0-0.2); BASO % 0.2 % (0.0-1.0); EOS # 0.0 10^3/uL (0.0-0.5); EOS % 0.0 % (0.0-3.0); LYMPH # 2.1 10^3/uL (1.5-5.0); LYMPH % 13.2 % (24.0-44.0); MONO # 1.1 10^3/uL (0.0-0.8); MONO % 6.9 % (2.0-8.0); NEUTROPHILS # 12.4 10^3/uL (1.5-8.5); NEUTROPHILS % 79.4 % (36.0-66.0); PLATELET COUNT, AUTOMATED 247 10^3/uL (150-450)
[2025-04-17 01:31] LABS: ALT/SGPT 22 U/L (7.0-40); AST/SGOT 24 U/L (<34); CALCIUM LEVEL 8.7 MG/DL (8.3-10.6); CARBON DIOXIDE LEVEL 28 MMOL/L (20-31); CHLORIDE LEVEL 103 MMOL/L (98-107); CREATININE FOR GFR 0.77 MG/DL (0.70-1.30); GLOMERULAR FILTRATION RATE > 90.0 (>49); MAGNESIUM LEVEL 2.0 MG/DL (1.8-2.4); POTASSIUM SERUM 3.6 MMOL/L (3.5-5.1); SODIUM LEVEL 141 MMOL/L (136-145)
[2025-04-17] MEDS ORDERED: ISOVUE-370 76% 100 ML VIAL As Ordered ONE (02:00)
[2025-04-17] MEDS ORDERED: ONDA-83 PO (04:15)
[2025-04-17 04:30] VITALS: BP 136/63
[2025-04-17 04:45] VITALS: O2SAT 97
== END 2025-04-17 05:00 | disposition home or self-care (01) ==
LOC: M ED 23:09
DX: A08.4 Viral intestinal infection, unspecified (principal); K80.80 Other cholelithiasis without obstruction; N28.89 Other specified disorders of kidney and ureter; K42.9 Umbilical hernia without obstruction or gangrene; I70.0 Atherosclerosis of aorta; R59.0 Localized enlarged lymph nodes; Z79.2 Long term (current) use of antibiotics; Z79.899 Other long term (current) drug therapy
CPT/HCPCS: 74177; 80053; 83735; 85025; 87486; 87581; 87633; 87798; 96361; 96374; 99284; J2470; Q9967

== ENCOUNTER 2025-04-21 06:57 | Emergency (ER) | payer OTHER ==
[~2025-04-21] VITALS: Ht 182.9 cm; Wt 94.1 kg
[2025-04-21] MEDS: PANTOPRAZOLE 40MG VIAL IV ONE (09:27)
[2025-04-21] MEDS: NS (Normal Saline) 0.9% 1,000 ML IV ONE (09:27)
[2025-04-21] MEDS: HALOPERIDOL LACTATE 5 MG/ML VIAL IV ONE (09:33)
[2025-04-21 09:40] LABS: BASO # 0.1 10^3/uL (0.0-0.2); BASO % 0.4 % (0.0-1.0); EOS # 0.0 10^3/uL (0.0-0.5); EOS % 0.1 % (0.0-3.0); LYMPH # 2.0 10^3/uL (1.5-5.0); LYMPH % 13.7 % (24.0-44.0); MONO # 0.8 10^3/uL (0.0-0.8); MONO % 5.5 % (2.0-8.0); NEUTROPHILS # 11.4 10^3/uL (1.5-8.5); NEUTROPHILS % 79.9 % (36.0-66.0); PLATELET COUNT, AUTOMATED 264 10^3/uL (150-450)
[2025-04-21 10:09] LABS: ALT/SGPT 21 U/L (7.0-40); AST/SGOT 17 U/L (<34); CALCIUM LEVEL 9.1 MG/DL (8.3-10.6); CARBON DIOXIDE LEVEL 29 MMOL/L (20-31); CHLORIDE LEVEL 106 MMOL/L (98-107); CREATININE FOR GFR 0.81 MG/DL (0.70-1.30); GLOMERULAR FILTRATION RATE > 90.0 (>49); MAGNESIUM LEVEL 2.3 MG/DL (1.8-2.4); POTASSIUM SERUM 4.6 MMOL/L (3.5-5.1); SODIUM LEVEL 145 MMOL/L (136-145)
[2025-04-21 10:19] LABS: CPK CREATINE PHOSPHOKINASE 105 U/L (46-171)
[2025-04-21] MEDS: BENZTROPINE MESYLATE 2 MG/2 ML VIAL IV ONE (10:41)
[2025-04-21 11:20] VITALS: BP 121/72; TEMP 98.3; O2SAT 96
[2025-04-21] MEDS ORDERED: PROT20TA11 PO (11:36)
[2025-04-21] MEDS ORDERED: PROM25TA12 PO (11:36)
== END 2025-04-21 12:03 | disposition home or self-care (01) ==
LOC: M ED 06:57
DX: R11.2 Nausea with vomiting, unspecified (principal); F12.20 Cannabis dependence, uncomplicated; R25.1 Tremor, unspecified; F10.10 Alcohol abuse, uncomplicated; Z88.8 Allergy status to other drugs, medicaments and biological substances; Z79.899 Other long term (current) drug therapy
CPT/HCPCS: 80048; 80076; 82550; 83690; 83735; 85025; 96374; 96375; 99284; J0515; J1630; J2470